=== PATIENT | female | born 2000 | race Caucasian/White ===

== ENCOUNTER 2022-02-02 23:29 | Emergency (ER) | payer MEDICAID, SELFPAY ==
--- NOTE | ~2022-02-02 | CT_ITS ---
EXAMINATION: CT ABDOMEN AND PELVIS WITHOUT CONTRAST CLINICAL INFORMATION: Right flank pain and fever. Rule out stone and pyelonephritis. COMPARISON: None TECHNIQUE: Multidetector volumetric imaging was performed from the superior aspect of the liver through the pubic symphysis. Sagittal and coronal reformatted images were obtained on the technologist's workstation. This CT examination was performed using dose optimization techniques as appropriate, variously including the following: *Automated exposure control *Adjustment of mA and/or kV according to patient size (this includes techniques or standardized protocols for targeted exams where dose is matched to indication/reason for exam; i.e. extremities or head) *Use of iterative reconstruction technique DLP: 343 mGy-cm FINDINGS: Visualized lung bases are well aerated. The liver demonstrates normal size, contour and attenuation. The gallbladder is normal in appearance. The pancreas, spleen and adrenal glands are unremarkable. Symmetrically sized kidneys. There are a couple 1-2 mm nonobstructing calculi within each kidney. There is no hydronephrosis of either kidney. There is asymmetric indistinctness of the right renal hilus with some subtle asymmetric perinephric stranding of the right kidney. Normal caliber loops of small and large bowel. Normal appendix. Normal caliber abdominal aorta. No retroperitoneal lymphadenopathy. The bladder is well-distended and normal in appearance. Unremarkable CT appearance of the uterus. 1.5 cm left adnexal cyst versus dominant follicle. Small amount of free pelvic fluid, nonspecific but often times physiologic. No inguinal lymphadenopathy. No acute osseous abnormality. CT/CT abdomen pelvis wo IV con IMPRESSION: -A few tiny 1 to 2 mm nonobstructing calculi are noted within each kidney. There is no hydronephrosis of either kidney. -There is asymmetric indistinctness of the right renal hilus with some subtle asymmetric perinephric stranding of the right kidney. Given provided history, pyelonephritis is within the differential. Fleischner guidelines were followed.
[2022-02-02 23:33] VITALS: BP 133/80; PULSE 113; RESP 20; TEMP 38.1; O2SAT 97; BMI 25.6
[2022-02-02 23:48] LABS: MANUAL DIFF FLAG NO
[2022-02-02 23:53] LABS: Basophils Percent Auto 0.1 % (0-2); Eosinophils Percent Auto 0.1 % (0-4); Hematocrit 40.6 % (37.0-47.0); Hemoglobin 13.3 g/dl (12.0-16.0); Imm Gran Abs Auto 0.03 X10*3/uL (0.00-0.03); Imm Gran Pct Auto 0.3 % (0.0-0.4); Lymphocytes Absolute Auto 1.3 X10*3/uL (1.2-4.9); Lymphocytes Percent Auto 12.2 % (20-40); Mean Corpuscular HGB Conc 32.8 g/dl (31.0-35.0); Mean Corpuscular Hemoglobin 30.3 pg (27.0-33.0); Mean Corpuscular Volume 92.5 fL (80.0-98.0); Mean Platelet Volume 8.4 fL (9.4-12.3); Monocytes Absolute Auto 1.2 X10*3/uL (0.1-1.2); Monocytes Percent Auto 10.8 % (2-11); Neutrophils Absolute Auto 8.3 x10*3/uL (2.0-8.3); Neutrophils Percent Auto 76.5 % (45-73); Platelet Count 322 X10*3/uL (160-400); Red Blood Count 4.39 X10*6/uL (4.20-5.50); Red Cell Distribution Width 11.8 % (11.0-16.0); White Blood Count 10.9 X10*3/uL (4.8-10.8)
[2022-02-03 00:19] LABS: Anion Gap 16 (12-20); Blood Urea Nitrogen 8 mg/dL (9-16); Calcium 9.8 mg/dL (8.4-10.2); Carbon Dioxide 23 mmol/L (22-29); Chloride 103 mmol/L (96-108); Creatinine Clr Calc Pharmacy 104.2; Estimated Glomerular Filt Rate > 60; Glucose Random 104 mg/dL (60-115); Potassium 4.1 mmol/L (3.3-5.1); Sodium 138 mmol/L (135-145)
[2022-02-03 00:26] LABS: Influenza A PCR NEGATIVE (Negative); Influenza B PCR NEGATIVE (Negative); Resp Syncy Virus RNA Qual PCR NEGATIVE (Negative); SARS COV2 PCR INHOUSE NEGATIVE (Negative)
--- NOTE | 2022-02-03 04:00 | PC.NURSE ---
Pt resting comfortably on stretcher. Mom at bedside. Waiting to be seen by ED provider.
[2022-02-03 04:53] VITALS: BP 111/63; PULSE 104; RESP 20; TEMP 37.3; O2SAT 99
[2022-02-03 05:03] LABS: Appearance Urine Cloudy; Color Urine Yellow; Glucose Urine UA Negative (Negative); Leukocyte Esterase Urine Large (3+) (Negative); Nitrite Urine Negative (Negative); UMIC TRIGGER UACC YES; Urine Blood Moderate (2+) (Negative); Urine Ketones 15 mg/dL (Negative); Urine Protein Trace mg/dL (Neg-Trace)
[2022-02-03 05:04] LABS: UPreg QC Valid YES; Urine Pregnancy NEGATIVE (NEGATIVE)
[2022-02-03 05:08] LABS: Bacteria Urine 4+ (None Seen); RBC Urine >20 /HPF (0-2); UACC Culture Trigger YES; WBC Urine >50 /HPF (0-5)
--- NOTE | 2022-02-03 05:38 | ED_ITS ---
HPI - General Adult General Chief complaint: General Medical Stated complaint: left flank pain , fever & chills Time Seen by Provider: 02/03/22 05:37 Source: patient and family Mode of arrival: ambulatory Limitations: no limitations History of Present Illness HPI narrative: 21-year-old female who presents emergency department for evaluation of right flank pain, fever, nausea. The patient states that the pain started yesterday and came on suddenly. She states that since onset the pain is been intermittent. The pain is a sharp stabbing pain which is 8/10 at its worst. The patient states that today she developed a fever and chills. She also developed nausea with no vomiting. She denied frequency, urgency or dysuria. She states she had a kidney stone in 2017 which she passed without surgical intervention. She states that the pain that she is experiencing now feels exactly like her kidney stone pain. The pain does not radiate to her abdomen. MD complaint: Right Flank pain Onset (ago): day(s) (2) Location: right (Flank) Radiation: non-radiation Severity: severe Severity scale (1-10): 8 Quality: sharp Pain Consistency: intermittent Relieving factors: none Exacerbating factors: none Associated symptoms: fever/chills and nausea/vomiting Treatments prior to arrival: other (Tylenol without relief) Related Data Previous Rx's Medication Instructions Recorded cefuroxime axetil 500 mg tablet 500 mg PO Q12H 10 days #20 tabs 02/03/22 ketorolac 10 mg tablet 10 mg PO Q8H PRN pain 5 days #15 02/03/22 tabs ondansetron 4 mg disintegrating 4 mg PO Q6-8H PRN nausea and 02/03/22 tablet vomiting #14 tabs Allergies Allergy/AdvReac Type Severity Reaction Status Date / Time tree nut [TREE NUT] Allergy Unknown ANAPHYLAXIS Unverified 11/25/19 17:35 SEAFOOD Allergy Unknown ANAPHYLAXIS Uncoded 11/25/19 17:35 Review of Systems Review of Systems: Yes all other systems are reviewed and are negative [facility] Past Medical History [facility] Narrative: Past medical history: Kidney stone in 2017. Past surgical history: None. Social history: She denies tobacco, alcohol and drug use. Social History Social History Advance Directives: No Advance Directives Information Provided: No Physical Exam ED Vital Signs: Vital Signs - 24 hr 02/02/22 23:33 02/03/22 04:53 Temperature 100.6 F H 99.2 F Pulse Rate 113 H 104 H Respiratory Rate 20 20 Blood Pressure 133/80 111/63 Pulse Oximetry 97 99 Oxygen Delivery Method Room Air Room Air BMI result Body Mass Index 25.6 Const General: cooperative and no acute distress Orientation/consciousness: oriented to person and oriented to place Limitations: no limitations HENMT Head: Yes normal to inspection, Yes normocephalic and Yes atraumatic Ears: external ears normal General nose exam: Normal external nose present Face and sinus: Yes normal facial exam Mouth: Normal oral and palatal mucosa present Throat: Yes posterior oropharynx normal Eyes General: appearance normal, both eyes and all related structures Pupils: Equal, round and reactive pupils present Neck Neck: Yes normal visual inspection, Yes no lymphadenopathy, Yes trachea midline and Yes supple Chest Chest palpation & inspection: normal inspection of the chest and normal palpation of entire chest wall Resp Effort & Inspection: normal respiratory effort and able to speak in complete sentences Auscultation: clear to auscultation bilaterally Cardio Rate: regular rate Rhythm: regular rhythm Heart sounds: S1 normal heart sound present, S2 normal heart sound present and no murmurs GI Inspection: Yes normal to inspection Palpation (GI): Soft to palpation, nontender and no guarding Auscultation: normal bowel sounds Other: Moderate right CVA tenderness Skin General skin exam: no rashes or lesions noted Neuro General: oriented to person and oriented to place Cranial nerves: Yes CN's II-XII intact bilaterally and Yes Equal, round and reactive pupils present Cognition (Neuro): normal cognition Motor exam (neuro): 5/5 motor strength present throughout Extrem General: Yes normal to inspection Psych Appearance: grossly normal Speech and movement: Normal speech and movement present Affect: normal affect Attitude: cooperative Thought process: Normal thought process present Thought content: Normal thought content present Course Course Course Narrative: 21-year-old female with a history of kidney stone in 2017 who presents emergency department for evaluation of sudden onset of right flank pain which began yesterday. The pain is been intermittent, sharp and severe (8/10). Patient has had associated nausea with no vomiting . She also had a fever associated with her symptoms. Vital signs did reveal an elevated heart rate of 113 with a fever of 100.6 degrees F. the patient did have moderate right-sided CVA tenderness with no abdominal tenderness. Laboratory evaluation and urinalysis were ordered at triage. 0606: Laboratory evaluation: Elevated WBC 53134, urinalysis revealed 2+ blood, 3+ leukocyte esterase. Microscopic revealed greater than 20 RBCs and greater than 50 WBCs, 3-5 squamous cells, 4+ bacteria. Urine test was negative. Given her right flank pain fever, elevated WBC and urine infection I will obtain a CT scan of the abdomen pelvis to rule out of possible obstructing stone verses pyelonephritis. Patient was treated with Toradol 15 mg IV, Zofran 4 mg IV and ceftriaxone 1 g IV. 0745: The patient is feeling significantly better after the above treatment. CT scan of the abdomen pelvis radiology reading as follows: IMPRESSION: -A few tiny 1 to 2 mm nonobstructing calculi are noted within each kidney. There is no hydronephrosis of either kidney. -There is asymmetric indistinctness of the right renal hilus with some subtle asymmetric perinephric stranding of the right kidney. Given provided history, pyelonephritis is within the differential. Fleischner guidelines were followed. Dictated By:Bam Vo MDSigned By:<Electronically signed by Bam Vo MD in [place]>02/03/22 0712 Given that there is no obstructing stone, I think that the patient can be discharged home and treated for pyelonephritis with oral antibiotics, she will also be prescribed Toradol for pain and Zofran for nausea and vomiting. She was given printed and verbal instructions and discharged home. Medications Administered Discontinued Medications Generic Name Dose Route Start Last Admin Trade Name Freq PRN Reason Stop Dose Admin Sodium Chloride 1,000 mls @ 999 mls/hr 02/03/22 05:57 02/03/22 06:12 Ns IV 02/03/22 06:57 999 mls/hr .Q1H1M STA Administration Ceftriaxone Sodium 1 gm/ 50 mls @ 100 mls/hr 02/03/22 06:04 02/03/22 06:43 Sodium Chloride IV 02/03/22 06:33 Infused ONCE ONE Infusion Ketorolac Tromethamine 15 mg 02/03/22 05:57 02/03/22 06:12 Ketorolac Tromethamine 15 Mg/Ml Vial IVPUSH 02/03/22 05:58 15 mg ONCE STA Administration Ondansetron HCl 4 mg 02/03/22 05:57 02/03/22 06:13 Ondansetron Hcl 4 Mg/2 Ml Vial IVPUSH 02/03/22 05:58 4 mg ONCE ONE Administration Medical Decision Making Lab Data Result diagrams: 02/02/22 23:44 02/02/22 23:44 Labs: Lab Results 02/02/22 02/02/22 02/02/22 Range/Units 23:44 23:44 23:44 WBC 10.9 H (4.8-10.8) X10*3/uL RBC 4.39 (4.20-5.50) X10*6/uL Hgb 13.3 (12.0-16.0) g/dl Hct 40.6 (37.0-47.0) % MCV 92.5 (80.0-98.0) fL MCH 30.3 (27.0-33.0) pg MCHC 32.8 (31.0-35.0) g/dl RDW 11.8 (11.0-16.0) % Plt Count 322 (160-400) X10*3/uL MPV 8.4 L (9.4-12.3) fL Immature Gran % (Auto) 0.3 (0.0-0.4) % Neut % (Auto) 76.5 H (45-73) % Lymph % (Auto) 12.2 L (20-40) % Tate % (Auto) 10.8 (2-11) % Eos % (Auto) 0.1 (0-4) % Baso % (Auto) 0.1 (0-2) % Lymph # (Auto) 1.3 (1.2-4.9) X10*3/uL Tate # (Auto) 1.2 (0.1-1.2) X10*3/uL Eos # (Auto) 0.0 (0.0-0.4) X10*3/uL Baso # (Auto) 0.0 (0.0-0.2) X10*3/uL Abs Immat Gran (auto) 0.03 (0.00-0.03) X10*3/uL Absolute Neuts (auto) 8.3 (2.0-8.3) x10*3/uL Absolute Nucleated RBC 0.000 (0.0-0.012) X10*3/uL Nucleated RBC % (auto) 0.0 (0.0-0.2) /100WBC Sodium 138 (135-145) mmol/L Potassium 4.1 (3.3-5.1) mmol/L Chloride 103 (96-108) mmol/L Carbon Dioxide 23 (22-29) mmol/L Anion Gap 16 (12-20) BUN 8 L (9-16) mg/dL Creatinine 0.76 (0.5-1.4) mg/dL Estim Creat Clear Calc 104.2 Estimated GFR > 60 Random Glucose 104 (60-115) mg/dL Lactic Acid (0.5-2.0) mmol/L Calcium 9.8 (8.4-10.2) mg/dL Urine Color Urine Appearance Urine pH (5.0-9.0) Ur Specific [place] (1.005-1.025) Urine Protein (Neg-Trace) mg/dL Urine Glucose (UA) (Negative) mg/dL Urine Ketones (Negative) mg/dL Urine Blood (Negative) Urine Nitrite (Negative) Ur Leukocyte Esterase (Negative) Urine RBC (0-2) /HPF Urine WBC (0-5) /HPF Ur Squamous Epith Cells (0-2) /HPF Urine Bacteria (None Seen) Hyaline Casts (0-2) /LPF Urine Test (NEGATIVE) Influenza Type A (PCR) NEGATIVE (Negative) Influenza Type B (PCR) NEGATIVE (Negative) RSV RNA Qual (PCR) NEGATIVE (Negative) SARS-CoV-2 RNA (RT-PCR) NEGATIVE (Negative) 02/03/22 02/03/22 02/03/22 Range/Units 04:54 04:54 06:04 WBC (4.8-10.8) X10*3/uL RBC (4.20-5.50) X10*6/uL Hgb (12.0-16.0) g/dl Hct (37.0-47.0) % MCV (80.0-98.0) fL MCH (27.0-33.0) pg MCHC (31.0-35.0) g/dl RDW (11.0-16.0) % Plt Count (160-400) X10*3/uL MPV (9.4-12.3) fL Immature Gran % (Auto) (0.0-0.4) % Neut % (Auto) (45-73) % Lymph % (Auto) (20-40) % Tate % (Auto) (2-11) % Eos % (Auto) (0-4) % Baso % (Auto) (0-2) % Lymph # (Auto) (1.2-4.9) X10*3/uL Tate # (Auto) (0.1-1.2) X10*3/uL Eos # (Auto) (0.0-0.4) X10*3/uL Baso # (Auto) (0.0-0.2) X10*3/uL Abs Immat Gran (auto) (0.00-0.03) X10*3/uL Absolute Neuts (auto) (2.0-8.3) x10*3/uL Absolute Nucleated RBC (0.0-0.012) X10*3/uL Nucleated RBC % (auto) (0.0-0.2) /100WBC Sodium (135-145) mmol/L Potassium (3.3-5.1) mmol/L Chloride (96-108) mmol/L Carbon Dioxide (22-29) mmol/L Anion Gap (12-20) BUN (9-16) mg/dL Creatinine (0.5-1.4) mg/dL Estim Creat Clear Calc Estimated GFR Random Glucose (60-115) mg/dL Lactic Acid 0.8 (0.5-2.0) mmol/L Calcium (8.4-10.2) mg/dL Urine Color Yellow Urine Appearance Cloudy Urine pH 6.0 (5.0-9.0) Ur Specific [place] 1.020 (1.005-1.025) Urine Protein Trace (Neg-Trace) mg/dL Urine Glucose (UA) Negative (Negative) mg/dL Urine Ketones 15 (Negative) mg/dL Urine Blood Moderate (2+) H (Negative) Urine Nitrite Negative (Negative) Ur Leukocyte Esterase Large (3+) H (Negative) Urine RBC >20 H (0-2) /HPF Urine WBC >50 H (0-5) /HPF Ur Squamous Epith Cells 3-5 (0-2) /HPF Urine Bacteria 4+ (None Seen) Hyaline Casts 3-5 (0-2) /LPF Urine Test NEGATIVE (NEGATIVE) Influenza Type A (PCR) (Negative) Influenza Type B (PCR) (Negative) RSV RNA Qual (PCR) (Negative) SARS-CoV-2 RNA (RT-PCR) (Negative) Discharge Plan Discharge Clinical Impression: Right flank pain, Acute bacterial pyelonephritis, Nausea Patient Disposition: Home, Self-Care Instructions: Kidney Infection (ED) Additional Instructions: Your blood work was unremarkable. Your urine did have red blood cells and white blood cells as well as bacteria which is consistent with an infection Your COVID-19 test was negative Your flu test was negative. Your test was negative. The CT scan of your abdomen pelvis without IV contrast revealed small stones in both kidneys but no stone in the ureter or any stone blocking the drainage of your kidneys which is reassuring. The CT scan did reveal inflammation of your right kidney suggesting that you have a right kidney infection and this is what is causing your pain. Your treated here in the emergency department with an antibiotic called ceftriaxone, this will last for 24 hours. You also received Toradol (ketorolac) for pain and Zofran (ondansetron) for nausea and vomiting Take the antibiotic cefuroxime 500 mg pills, take 1 pill every 12 hours for 10 days. This is a strong antibiotic that should treat the kidney infection. Take take the antinausea medicine Zofran (ondansetron) oral dissolvable tablets, dissolve 1 tablet in your mouth every 8 hours as needed for nausea and vomiting. Take the anti-inflammatory pain medicine, Toradol ( Ketoralac) 10 mg pills every 8 hours as needed for pain. If this medication is not covered by your insurance then take ibuprofen 200 mg pills, 2 pills every 6 hours as needed for pain. Follow-up with your doctor in 2 days. Please return to the emergency department if your symptoms get worse or if you develop any symptoms that are concerning to you. Prescriptions: New cefuroxime axetil 500 mg tablet 500 mg PO Q12H 10 Days Qty: 20 0RF ondansetron 4 mg tablet,disintegrating 4 mg PO Q6-8H PRN (Reason: nausea and vomiting) Qty: 14 0RF ketorolac 10 mg tablet 10 mg PO Q8H PRN (Reason: pain) 5 Days Qty: 15 0RF
[2022-02-03] MEDS: 0.9 % Sodium Chloride 1,000 ML 999 ML IV (06:12)
[2022-02-03] MEDS: Ketorolac Tromethamine 15 MG/ML VIAL IVPUSH (06:12)
[2022-02-03] MEDS: cefTRIAXone sodium 1 GM in 0.9 % Sodium Chloride 50 ML IV (06:13)
[2022-02-03] MEDS: ondansetron HCL 4 MG/2 ML VIAL IVPUSH (06:13)
--- NOTE | 2022-02-03 06:22 | PC.NURSE ---
Pt urine showing UTI. Provider in to see patient. Ordered lactic and blood cultures and CT abd/pelvis to r/o kidney stones. iv placed, labs sent, fluids running, abx, pain and nausea meds given. Pt waiting to go to CT scan. Resting comfortably. Call hall within reach.
[2022-02-03 06:27] LABS: Lactic Acid 0.8 mmol/L (0.5-2.0)
--- NOTE | 2022-02-03 08:19 | PC.NURSE ---
Patient a/ox4 . breathing even and unlabored . VSS . went over discharge instructions as ordered by provider with mother . patient to follow up with primary care . patient to return to Ed if symptoms worsen . There are no questions from family or patent at this time .
[2022-02-03 08:21] VITALS: BP 112/72; PULSE 99; RESP 19; TEMP 37.1; O2SAT 99
== END 2022-02-03 08:22 | disposition home or self-care (01) ==
PROVIDERS: Emergency Provider Emergency Medicine Emergency Medical Services; PCP Pediatrics
DX: N10 Acute pyelonephritis (principal); B96.89 Other specified bacterial agents as the cause of diseases classified elsewhere; R10.9 Unspecified abdominal pain; R50.9 Fever, unspecified; R11.2 Nausea with vomiting, unspecified; Z20.822 Contact with and (suspected) exposure to COVID-19; Z79.899 Other long term (current) drug therapy
CPT/HCPCS: 0241U; 36415; 74176; 80048; 81001; 81003; 81025; 83605; 85025; 87040; 87086; 87088; 87186; 96361; 96374; 96375; 99284; J0696; J1885; J2405

== ENCOUNTER 2022-10-01 11:40 | Outpatient (REF) | payer MEDICAID, SELFPAY | END 2022-10-01 11:41 | disposition home or self-care (01) | LOC: HO.LNP 11:40 | PROVIDERS: Visit Provider Family Medicine | DX: R30.9 Painful micturition, unspecified (principal) | CPT/HCPCS: 87086 ==

== ENCOUNTER 2022-12-04 12:59 | Outpatient (AMB) | payer MEDICAID, SELFPAY ==
--- NOTE | 2022-12-04 13:10 | A.OFFVIS_ITS ---
Intake Intake Visit Reasons: Flank Pain/Hx of Nephrolithiasis Intake Note: New Patient presents for initial visit flank pain/hx of nephrolithiasis Urology Medications: none Blood Thinner: none Director Of Capital Giving Required: No Accompanied by: Self / Same As Patient Allergies tree nut [TREE NUT] Allergy (Unknown, Unverified 12/04/22 13:37) ANAPHYLAXIS SEAFOOD Allergy (Unknown, Uncoded 12/04/22 13:37) ANAPHYLAXIS Medication List - Last Reconciled 12/04/22 by PHYLLIS Webber benzoyl peroxide 5% (BP Wash) topical DAILY tretinoin 0.01% (Retin-A) topical BEDTIME HPI HPI Comments History of Present Illness Details Deborah is a very pleasant 22-year-old female patient of Dr. Francis. She presents to the office today as a new patient for nephrolithiasis. Patient reports having followed-up with urologist sometime a year ago for a history of renal stones however is not sure where and or the name of the provider. In review of patient's chart no updated imaging at this time. Patient denies any urological issues or concerns. She reports wanting to establish urology care. She matt urinary urgency, urinary frequency, incontinence, nocturia, hematuria, dysuria, foul smelling urine, changes to urinary stream, flank pain, fever, and or chills. She is happy with her current voiding parameters. When asked she reports to be drinking water daily. Discussed at length potential causes of nephrolithiasis. Discussed obtaining renal ultrasound for further assessment evaluation. She otherwise denies any other issues or concerns at this time. Review of Systems Const All systems reviewed & are unremarkable except as noted in HPI and below Physical Exam Const General: cooperative, healthy appearing, comfortable, no acute distress, well developed, alert and awake Nutritional Appearance: thin Orientation/consciousness: patient oriented x3 Limitations: no limitations HEENT Head: Yes normal to inspection, Yes normocephalic and Yes atraumatic Ears: hearing grossly normal bilaterally Eyes General: appearance normal, both eyes and all related structures Neck Neck: Yes normal visual inspection and Yes trachea midline Chest Chest palpation & inspection: normal inspection of the chest Resp Effort & Inspection: normal respiratory effort and able to speak in complete sentences Cardio Rate: regular rate GI Inspection: Yes normal to inspection General: Yes no CVA tenderness Back/Spine/Pelvis Back: no CVA tenderness Skin General skin exam: no rashes or lesions noted Neuro General: patient oriented x3 Extrem General: Yes normal to inspection Psych Appearance: grossly normal and well kempt Mental Status: mental status grossly normal Speech and movement: Normal speech and movement present and Clear speech present Affect: normal affect Attitude: cooperative Thought process: Normal thought process present Thought content: Normal thought content present Insight: Good insight present (Psych) Judgement: Good judgement present (Psych) Results AMB Urinalysis, Automated UA Leukoctes 0 Brittany/uL Last Edit by Goomzee on 12/04/22 13:24 UA Nitrite Last Edit by Goomzee on 12/04/22 13:24 UA Urobilinogen 0.2 mg/dL Last Edit by Goomzee on 12/04/22 13:24 UA Protein 0 mg/dL Last Edit by Goomzee on 12/04/22 13:24 UA pH 8.0 Last Edit by Goomzee on 12/04/22 13:24 UA Blood 200 Herbert/uL Last Edit by Goomzee on 12/04/22 13:24 UA Specific [place] 1.010 Last Edit by Goomzee on 12/04/22 13:24 UA Ketone Last Edit by Goomzee on 12/04/22 13:24 UA Bilirubin 0 mg/dL Last Edit by Goomzee on 12/04/22 13:24 UA Glucose 0 mg/dL Last Edit by Goomzee on 12/04/22 13:24 Results Reviewed Results Reviewed: Laboratory Last Values Urine pH (Auto) 8.0 12/04/22 13:14 Specific [place] (Auto) 1.010 12/04/22 13:14 Urine Protein (Auto) 0 mg/dL 12/04/22 13:14 Glucose (UA)(Auto) 0 mg/dL 12/04/22 13:14 Urine Blood (Auto) 200 Herbert/uL 12/04/22 13:14 Urine Bilirubin (Auto) 0 mg/dL 12/04/22 13:14 Urine Urobilinogen (Auto) 0.2 mg/dL 12/04/22 13:14 Leukocyte Esterase (Auto) 0 Brittany/uL 12/04/22 13:14 Assessment & Plan Assessment & Plan (1) Nephrolithiasis: Code(s): N20.0 - Calculus of kidney Plan In office urinalysis results reviewed with the patient today Will obtain renal ultrasound for further assessment evaluation. Discussed at length importance of drinking plenty of water daily. Discussed adding 1 oz of lemon juice to water daily. Patient denies any bothersome urinary issues or concerns at this time. Patient reports to be happy with current voiding parameters. Follow-up in 1-2 months with imaging to be completed prior; or sooner with any i ssues, concerns, and or questions. Orders: Orders AMB Urinalysis Automated Today Z13.9 - Encounter for screening, unspecified US renal BI Today N20.0 - Calculus of kidney Patient Instructions: The patient had an opportunity to ask questions regarding the treatment plan. All questions were answered. Physical exam, labs, and imaging were discussed and reviewed in detail. As well as risks, benefits, and discussion of treatment choices. No major barriers to understanding were identified. The patient expressed understanding and agreement with the above treatment plan. The patient was made aware they should contact our office by phone for worsening of their current condition, the appearance of new symptoms, or with any questions or concerns. Compliance is encouraged with any medications and follow up testing that is ordered. It is a privilege to be allowed the opportunity to participate in? your urological care.? Again, if you have any questions or concerns If you have any questions or concerns please do not hesitate to contact me. The office is [phone]. This note is constructed using voice recognition software. While every effort has been made to ensure accuracy furniture sander errors may have been included. Yours sincerely, PHYLLIS Webber Coding Level of Care Code New Pt Level 3 (01008) Diagnoses Nephrolithiasis N20.0
== END 2022-12-04 14:29 | disposition home or self-care (01) ==
PROVIDERS: PCP Pediatrics; Referring Provider Family Medicine; Visit Provider Nurse Practitioner Family
DX: Z13.9 Encounter for screening, unspecified (principal); N20.0 Calculus of kidney
CPT/HCPCS: 99203

== ENCOUNTER → 2022-12-04 12:59 | Outpatient (BNVA) | payer MEDICAID, SELFPAY | PROVIDERS: PCP Pediatrics; Referring Provider Family Medicine; Visit Provider Nurse Practitioner Family | DX: N20.0 Calculus of kidney (principal) | CPT/HCPCS: 81003; 99212 ==